=== PATIENT | female | born 1960 | race American Indian/Alaskan Native ===

== ENCOUNTER 2017-08-13 09:30 | Emergency (ER) | payer OTHER ==
[2017-08-13 09:39] VITALS: BP 149/74
[2017-08-13] MEDS ORDERED: TORADOL IM ONE (10:19)
--- NOTE | 2017-08-13 10:24 | Emergency Department Report ---
ED General Adult HPI - General Chief complaint: Pain General Stated complaint: LEFT FLANK PAIN Time Seen by Provider: 08/13/17 10:08 Source: patient Mode of arrival: Ambulatory Limitations: No Limitations - History of Present Illness Initial comments: 57 yo female with a past medical history hypertension presents to the hospital complaining of pain in 2 the left side of her body. Pain started in her left wrist 2 days ago that spread up her arm to her upper left chest, left lower back , and left leg. Pain is described as constant and aching worse on movement and palpation. Pain is rated 8/10 intensity. Taken Motrin without relief. Patient denies any weakness, numbness, shortness of breath, nausea, vomiting, or diaphoresis. She does not smoke nor does she has a family history of CAD. Patient is right-hand dominant and has been lifting her 2-year-old grandchild recently but denies any other acute injury. PMD: [place] - Related Data Previous Rx's Medication Instructions Recorded Last Taken Type traMADol [Ultram 50 MG tab] 50 mg PO Q6HR PRN #20 tablet 08/13/17 Unknown Rx Allergies Allergy/AdvReac Type Severity Reaction Status Date / Time No Known Allergies Allergy Unverified 08/13/17 09:34 ED Review of Systems ROS: Stated complaint: LEFT FLANK PAIN Other details as noted in HPI Comment: All other systems reviewed and negative ED Past Medical Hx - Past Medical History Previous Medical History?: Yes Hx Hypertension: Yes - Surgical History Past Surgical History?: No Additional Surgical History: uterine ablation - Social History Smoking Status: Never Smoker Substance Use Type: Alcohol, Prescribed - Medications Home Medications: Home Medications Medication Instructions Recorded Confirmed Last Taken Type traMADol [Ultram 50 MG tab] 50 mg PO Q6HR PRN #20 tablet 08/13/17 Unknown Rx ED Physical Exam - General Limitations: No Limitations - Other Other exam information: General: No limitations, patient is alert in no acute distress Head exam: Atraumatic, normocephalic Eyes exam: Normal appearance ENT: Moist mucous membrane, normal oropharynx Neck exam: Normal inspection, full range of motion, no meningismus nontender Respiratory exam: Clear to auscultation bilateral, no wheezes, rales, crackles Cardiovascular: Normal rate and rhythm, tenderness to left upper chest Abdomen: Soft, nondistended, and nontender, with normal bowel sounds, no rebound, or guarding Extremity: Full range of motion normal inspection no deformity. Pain and tenderness to the left wrist, left arm muscles Back: Normal Inspection, full range of motion, tenderness left lower back Neurologic: Alert, oriented x3, cranial nerves intact, no motor or sensory deficit Psychiatric: normal affect, normal mood Skin: Warm, dry, intact, no warmth or edema ED Course Vital Signs 08/13/17 09:34 Temperature 98.1 F Pulse Rate 91 H Respiratory 18 Rate Blood Pressure 149/74 O2 Sat by Pulse 100 Oximetry ED Medical Decision Making - EKG Data -: EKG Interpreted by Me EKG shows normal: sinus rhythm, axis (qrs -10), QRS complexes (qrsd 97), ST-T waves (no stemi/t inv) Rate: normal (68) - EKG Data When compared to previous EKG there are: previous EKG unavailable - Medical Decision Making Patient had various arthralgias and myalgias and a reproducible palpation. No signs of infection, weakness, or numbness. She will be provided tramadol addition to her Motrin 800 mg and instructed to follow-up with PMD. IM Toradol given in the ED prior to discharge since patient has not had any Motrin today. - Differential Diagnosis arthritis, muscular skeletal pain, muscle strain Critical Care Time: No Critical care attestation.: If time is entered above; I have spent that time in minutes in the direct care of this critically ill patient, excluding procedure time. ED Disposition Clinical Impression: Musculoskeletal pain Disposition: DC-01 TO HOME OR SELFCARE Is pt being admited?: No Does the pt Need Aspirin: No Condition: Stable Instructions: Musculoskeletal Pain (ED) Additional Instructions: Taken medication as prescribed and follow-up with your doctor for further evaluation. Return is symptoms worsen as indicated by your discharge instructions. Prescriptions: traMADol [Ultram 50 MG tab] 50 mg PO Q6HR PRN #20 tablet PRN Reason: Pain Referrals: PRIMARY CARE, [Primary Care Provider] - 3-5 Days ([facility] ) Time of Disposition: 10:25
== END 2017-08-13 11:06 | disposition home or self-care (01) ==
LOC: ED 09:30
DX: M54.5 Low back pain (principal); R10.9 Unspecified abdominal pain; M79.605 Pain in left leg; I10 Essential (primary) hypertension
CPT/HCPCS: 93005; 93010; 96372; 99282; J1885